=== PATIENT | male | born 1985 | race Caucasian/White ===

== ENCOUNTER 2016-11-11 18:45 | Emergency (ER) | payer SELFPAY ==
[~2016-11-11] VITALS: Ht 190.5 cm; Wt 95.2 kg
[2016-11-11 21:26] VITALS: BP 113/80
== END 2016-11-11 21:57 | disposition left against medical advice (07) ==
LOC: ED 18:45
DX: H92.01 Otalgia, right ear (principal); H53.8 Other visual disturbances